=== PATIENT | female | born 1995 | race Caucasian/White ===

== ENCOUNTER 2018-08-23 19:15 | Emergency (ER) | payer MEDICAID ==
[~2018-08-23] VITALS: Ht 167.6 cm; Wt 95.0 kg
[~2018-08-23 19:15] MED LIST: CALC200T3 PO; IBUP-1222 PO; IBUP-1223 PO; OXYC-302 PO; PREN1TAB25 PO; PREN1TAB96
--- NOTE | 2018-08-23 19:24 | NUR ---
[facility] allen in ED - 08/23/18 at 1925 by LALITO TO CONTACT IR FOR DOBHOFF PLACEMENT
--- NOTE | 2018-08-23 19:51 | NUR ---
L&D NOTIFIED, RN TO COME FOR FHT
--- NOTE | 2018-08-23 19:56 | NUR ---
RN AT BEDSIDE FOR T
--- NOTE | 2018-08-23 20:03 | NUR ---
PT RETURNED FROM US
[2018-08-23 20:30] LABS: BASOPHILS # (AUTO) 0.06 x10^3/uL (0-0.1); BASOPHILS % (AUTO) 1 % (0-1); EOSINOPHILS % (AUTO) 1 % (1-7); LYMPHOCYTES # (AUTO) 1.38 x10^3/uL (1-3.4); LYMPHOCYTES % (AUTO) 15 % (22-44); MD NO; MEAN CORPUSCULAR HEMOGLOBIN 29.8 pg (27.0-34.8); MEAN CORPUSCULAR HGB CONC 32.9 g/dL (32.4-35.8); MEAN CORPUSCULAR VOLUME 90.5 fL (80-100); MONOCYTES # (AUTO) 0.88 x10^3/uL (0.2-0.8); MONOCYTES % (AUTO) 9 % (2-9); NEUTROPHILS # (AUTO) 6.86 x10^3/uL (1.8-6.8); NEUTROPHILS % (AUTO) 74 % (42-75); PLATELET COUNT 289 x10^3/uL (130-400); RED BLOOD COUNT 4.23 x10^6/uL (3.82-5.3); RED CELL DISTRIBUTION WIDTH 13.9 % (9.6-15.2)
[2018-08-23 20:40] LABS: ANION GAP 8 mmol/L (5-15); CALCIUM 8.8 mg/dL (8.5-10.1); CHLORIDE 107 mmol/L (98-107); CREATININE 0.59 mg/dL (0.55-1.02)
[2018-08-23 20:43] LABS: TROPONIN I < 0.015 ng/mL (0.000-0.045)
--- NOTE | 2018-08-23 21:04 | NUR ---
PT UP FOR RECHECK THEN DC HOME.
[2018-08-23 21:28] VITALS: BP 104/68
== END 2018-08-23 22:02 | disposition home or self-care (01) ==
LOC: ED 19:32
DX: O99.513 Diseases of the respiratory system complicating pregnancy, third trimester (principal); R09.1 Pleurisy; J20.9 Acute bronchitis, unspecified; Z3A.31 31 weeks gestation of pregnancy
CPT/HCPCS: 36415; 71046; 80048; 84484; 85025; 85379; 93005; 99284

== ENCOUNTER 2018-10-18 13:43 | Outpatient (CLI) | payer MEDICAID ==
[~2018-10-18] VITALS: Ht 167.6 cm; Wt 98.6 kg
== END 2018-10-18 18:07 | disposition home or self-care (01) ==
LOC: LDOP 13:43
PROVIDERS: ATTEND Obstetrics & Gynecology
DX: O26.893 Other specified pregnancy related conditions, third trimester (principal); R10.9 Unspecified abdominal pain; Z3A.39 39 weeks gestation of pregnancy
CPT/HCPCS: 59025; 76819; 99211; G0463

== ENCOUNTER 2018-10-20 00:46 | Inpatient (IN) | payer MEDICAID ==
[~2018-10-20] VITALS: Ht 167.6 cm; Wt 98.6 kg
[2018-10-20 20:00] VITALS: BP 122/79
== END 2018-10-21 13:25 | disposition home or self-care (01) | DRG 807 ==
LOC: LDOP 00:46 → LDIP 01:05 → 2NW 03:52
PROVIDERS: ADMIT Obstetrics & Gynecology; ATTEND Obstetrics & Gynecology
PROC: 10E0XZZ Delivery of Products of Conception, External Approach (ICD-10-PCS; principal; 2018-10-20)
DX: O99.824 Streptococcus B carrier state complicating childbirth (principal); Z37.0 Single live birth; O62.3 Precipitate labor; Z3A.39 39 weeks gestation of pregnancy; Z88.0 Allergy status to penicillin
CPT/HCPCS: 36415; 85025; 86850; 86900; G0378; J3010; J2590; J7120

== ENCOUNTER 2019-01-15 10:20 | Outpatient (CLI) | payer MEDICAID ==
[2019-01-15] MEDS ORDERED: None per pt (10:50)
[2019-01-15 11:19] LABS: BASOPHILS # (AUTO) 0.05 x10^3/uL (0-0.1); BASOPHILS % (AUTO) 1 % (0-1); EOSINOPHILS # (AUTO) 0.07 x10^3/uL (0-0.4); EOSINOPHILS % (AUTO) 1 % (1-7); LYMPHOCYTES # (AUTO) 1.37 x10^3/uL (1-3.4); LYMPHOCYTES % (AUTO) 22 % (22-44); MD NO; MEAN CORPUSCULAR HEMOGLOBIN 29.8 pg (27.0-34.8); MEAN CORPUSCULAR HGB CONC 33.1 g/dL (32.4-35.8); MEAN PLATELET VOLUME 7.7 fL (7.4-10.4); MONOCYTES # (AUTO) 0.57 x10^3/uL (0.2-0.8); MONOCYTES % (AUTO) 9 % (2-9); NEUTROPHILS # (AUTO) 4.33 x10^3/uL (1.8-6.8); NEUTROPHILS % (AUTO) 68 % (42-75); PLATELET COUNT 294 x10^3/uL (130-400); RED BLOOD COUNT 4.69 x10^6/uL (3.82-5.3)
[2019-01-15 11:29] LABS: ALANINE AMINOTRANSFERASE 58 U/L (12-78); ALBUMIN 3.6 g/dL (3.4-5.0); ANION GAP 5 mmol/L (5-15); CALCIUM 8.5 mg/dL (8.5-10.1); CHLORIDE 108 mmol/L (98-107)
[2019-01-15 11:33] LABS: MICROSCOPIC AUTO
[2019-01-15 11:34] LABS: ALKALINE PHOSPHATASE 84 U/L (45-117); BILIRUBIN,TOTAL 0.5 mg/dL (0.2-1.0); TOTAL PROTEIN 7.3 g/dL (6.4-8.2)
[2019-01-15 11:38] LABS: CULTURE INDICATED? NO
== END 2019-01-15 23:59 | disposition home or self-care (01) ==
LOC: STAR 10:20
PROVIDERS: ATTEND Obstetrics & Gynecology
DX: Z01.818 Encounter for other preprocedural examination (principal); Z98.51 Tubal ligation status
CPT/HCPCS: 36415; 80053; 81001; 84702; 85025

== ENCOUNTER 2019-01-23 10:01 | Day surgery (SDC) | payer MEDICAID ==
[~2019-01-23] VITALS: Ht 167.6 cm; Wt 92.8 kg
[~2019-01-23 10:01] MED LIST changes: +None per pt
[2019-01-23] MEDS ORDERED: LACTATED RINGERS 1,000 ML IV SCH (10:42)
[2019-01-23 10:45] VITALS: BP 101/64
[2019-01-23 10:47] LABS: HCG UR SG 1.021 (1.003-1.030)
[2019-01-23] MEDS ORDERED: EPINEPHRINE 1 MG/ML, 1ML ONE (11:01)
[2019-01-23] MEDS ORDERED: SILVER NITRATE STICK TP ONE (11:01)
[2019-01-23] MEDS ORDERED: BUPIVACAINE/PF 0.25% ONE (11:01)
[2019-01-23] MEDS ORDERED: FENTANYL PF 250 MCG/5ML ONE (11:38)
[2019-01-23] MEDS ORDERED: PROPOFOL 50 ML ONE ×2 (11:38→12:17)
[2019-01-23] MEDS ORDERED: MIDAZOLAM 1 MG/ML, 2ML ONE (11:38)
[2019-01-23] MEDS ORDERED: ROCURONIUM 10 MG/ML,10ML ONE (11:46)
[2019-01-23] MEDS ORDERED: SUCCINYLCHOLINE 20 MG/ML, 10ML ONE (11:54)
[2019-01-23] MEDS ORDERED: ONDANSETRON 2MG/ML, 2ML ONE (11:54)
[2019-01-23] MEDS ORDERED: DEXAMETHASONE 4 MG/ML, 1ML ONE (11:55)
[2019-01-23] MEDS ORDERED: PROPOFOL 10 MG/ML, 20ML ONE (11:55)
[2019-01-23] MEDS ORDERED: HYDROmorphone 1 MG/ML, 1ML VIAL IVPush PRN (12:30)
[2019-01-23] MEDS ORDERED: ONDANSETRON 2MG/ML, 2ML IV PRN (12:30)
[2019-01-23] MEDS ORDERED: ONDANSETRON ODT 8 MG PO PRN (12:30)
[2019-01-23] MEDS ORDERED: EPHEDRINE 50 MG/ML, 1ML IVPush PRN (12:30)
[2019-01-23] MEDS ORDERED: EPHEDRINE 50 MG/ML, 1ML IM PRN (12:30)
[2019-01-23] MEDS ORDERED: MIDAZOLAM 1 MG/ML, 2ML IV PRN (12:30)
[2019-01-23] MEDS ORDERED: FENTANYL PF 100 MCG/2ML IV PRN (12:30)
[2019-01-23] MEDS ORDERED: MEPERIDINE/PF 25MG/ML,1ML IVPush PRN (12:30)
[2019-01-23] MEDS ORDERED: DIPHENHYDRAMINE 50 MG/ML, 1ML IVPush PRN (12:30)
[2019-01-23] MEDS ORDERED: DIAZEPAM 5 MG/ML, 2ML IVPush PRN (12:30)
[2019-01-23] MEDS ORDERED: PROMETHAZINE 25 MG/ML, 1ML IV PRN (12:30)
[2019-01-23] MEDS ORDERED: OXYcodone 5 MG/5 ML ORAL.SOL UDC PO PRN (12:30)
== END 2019-01-23 15:20 | disposition home or self-care (01) ==
LOC: OUT 10:01
PROVIDERS: ATTEND Obstetrics & Gynecology
DX: Z30.2 Encounter for sterilization (principal); G43.909 Migraine, unspecified, not intractable, without status migrainosus
CPT/HCPCS: 00851; 36415; 58670; 81025; 86850; 86900; 88302; J0171; J0330; J1100; J2250; J2405; J2704; J3010; J3490; J7120

== ENCOUNTER 2019-09-17 12:47 | Emergency (ER) | payer MEDICAID ==
[~2019-09-17] VITALS: Ht 170.2 cm; Wt 103.8 kg
--- NOTE | 2019-09-17 13:21 | NUR ---
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
--- NOTE | 2019-09-17 13:22 | NUR ---
PT TO ROOM & REQUESTED BR, UA CUP GIVEN, PT AMBULATING STEADILY.
--- NOTE | 2019-09-17 13:32 | NUR ---
PT RETURNED TO ROOM FROM , CHANGED INTO GOWN, UPRIGHT ON GURNEY AWAKE & COMFORTABLE, RESPONDS APPROP TO STAFF, NAD, COMFORT MEASURES PROVIDED, CALL LIGHT WITHIN REACH.
[2019-09-17 14:15] LABS: BASOPHILS # (AUTO) 0.05 x10^3/uL (0-0.1); BASOPHILS % (AUTO) 1 % (0-1); EOSINOPHILS # (AUTO) 0.07 x10^3/uL (0-0.4); EOSINOPHILS % (AUTO) 1 % (1-7); LYMPHOCYTES # (AUTO) 1.81 x10^3/uL (1-3.4); LYMPHOCYTES % (AUTO) 23 % (22-44); MD NO; MEAN CORPUSCULAR HEMOGLOBIN 25.7 pg (27.0-34.8); MEAN CORPUSCULAR HGB CONC 31.7 g/dL (32.4-35.8); MEAN CORPUSCULAR VOLUME 81.1 fL (80-100); MEAN PLATELET VOLUME 7.7 fL (7.4-10.4); MONOCYTES # (AUTO) 0.56 x10^3/uL (0.2-0.8); MONOCYTES % (AUTO) 7 % (2-9); NEUTROPHILS # (AUTO) 5.29 x10^3/uL (1.8-6.8); NEUTROPHILS % (AUTO) 68 % (42-75); PLATELET COUNT 309 x10^3/uL (130-400); RED BLOOD COUNT 4.29 x10^6/uL (3.82-5.3); RED CELL DISTRIBUTION WIDTH 14.6 % (9.6-15.2)
--- NOTE | 2019-09-17 14:17 | NUR ---
BREAK RN NOTE: ORDER FOR STRAIGHT CATH UA OBTAINED. STRAIGHT CATH COMPLETED, URINE WALKED TO LAB. PT HAS MODERATE VAG BLEEDING AT THIS TIME, PAD PLACED UNDER PT. PT A&O, RESPS EVEN AND UNLABORED, NADN. MOTHER AT BEDSIDE. AWAITING US AND DISPO AT THIS TIME.
[2019-09-17 14:29] LABS: ALANINE AMINOTRANSFERASE 30 U/L (12-78); ALBUMIN 3.2 g/dL (3.4-5.0); ANION GAP 5 mmol/L (5-15); CALCIUM 8.8 mg/dL (8.5-10.1); CHLORIDE 110 mmol/L (98-107); CREATININE 0.81 mg/dL (0.55-1.02)
[2019-09-17 14:33] LABS: ALKALINE PHOSPHATASE 82 U/L (45-117); BILIRUBIN,TOTAL 0.2 mg/dL (0.2-1.0); TOTAL PROTEIN 6.8 g/dL (6.4-8.2)
[2019-09-17 14:37] LABS: MICROSCOPIC INDICATED
--- NOTE | 2019-09-17 14:46 | NUR ---
report given back to primary RN maye Mckinnon in US at this time.
[2019-09-17 15:25] VITALS: BP 100/52
--- NOTE | 2019-09-17 16:13 | NUR ---
Patient given discharge instructions and they have confirmed that they understand the instructions. Patient ambulatory with steady gait.
== END 2019-09-17 16:30 | disposition home or self-care (01) ==
LOC: ED 13:28
DX: N93.8 Other specified abnormal uterine and vaginal bleeding (principal); R10.2 Pelvic and perineal pain; M54.5 Low back pain; R11.0 Nausea
CPT/HCPCS: 36415; 76830; 80053; 81001; 84703; 85025; 99284

== ENCOUNTER 2020-02-13 14:38 | Emergency (ER) | payer MEDICAID ==
[~2020-02-13] VITALS: Ht 167.6 cm; Wt 107.5 kg
--- NOTE | 2020-02-13 16:10 | NUR ---
CHILLS, SIDDIQUI, COUGH, SUBJECTIVE FEVER, BODY ACHES SINCE YESTERDAY ROOM AIR 95-98%
[2020-02-13 16:23] VITALS: BP 112/88
--- NOTE | 2020-02-13 16:56 | NUR ---
ERP IN TO SEE PT. COVID TEST OBTAINED BY
== END 2020-02-13 17:38 | disposition home or self-care (01) ==
LOC: ED 17:34
DX: U07.1 COVID-19 (principal); J06.9 Acute upper respiratory infection, unspecified
CPT/HCPCS: 99283; U0003